=== PATIENT | female | born 1980 | race Caucasian/White ===

== ENCOUNTER 2019-06-02 21:58 | Emergency (ER) | payer MEDICAID ==
[~2019-06-02] VITALS: Ht 167.6 cm; Wt 57.2 kg
[2019-06-02 22:02] VITALS: BP 107/62
--- NOTE | 2019-06-02 22:43 | NUR ---
Patient/Caregiver given discharge instructions and they have confirmed that they understand the instructions. Patient ambulatory with steady gait.
== END 2019-06-02 22:44 | disposition home or self-care (01) ==
LOC: ED 22:05
DX: N63.0 Unspecified lump in unspecified breast (principal)
CPT/HCPCS: 93005; 99283